=== PATIENT | male | born 1980 | race Two or more races ===

== ENCOUNTER 2024-04-15 02:24 | Emergency (ER) | payer OTHER ==
[~2024-04-15] VITALS: Ht 165.1 cm; Wt 90.9 kg
[2024-04-15 03:33] VITALS: BP 144/94; PULSE 98; RESP 19; O2SAT 94
[2024-04-15] MEDS: ACETAMINOPHEN 500 MG TAB or CAP PO ONE (03:40)
[2024-04-15] MEDS: KETOROLAC TROMETH 60MG/2ML VIAL IM ONE (03:41)
[2024-04-15] MEDS ORDERED: METH4PAK PO (03:45)
[2024-04-15] MEDS ORDERED: AUG875T PO (03:45)
--- NOTE | 2024-04-15 03:46 | ED.PDOC ---
Eye-HPI HPI Comments PT PRESENTED TO ED FOR SORE THROAT, COUGH, CONGESTION, FEVERS CHILLS X1 DAY. PT DENIED DIFFICULTY SWALLOWING. DENIES DIFFICULTY BREATHING, SHORTNESS OF BREATH, FEVERS, RECENT TRAVEL, KNOWN ILL CONTACTS. Chief Complaint: Sore Throat Time Seen by MD: 02:36 Reviewed Notes: Nurses Notes, Medications, Allergies Allergies: Coded Allergies: No Known Drug Allergy (Verified Allergy, Unknown, 04/15/24) Home Meds Active Scripts Methylprednisolone (Medrol Dosepak) 4 Mg Victorino, 4 MG PO UD for 6 Days, #21 TAB UAD Prov:EDWAR MAY [employer] 04/15/24 Amoxicillin & Pot Clavulanate (AUGMENTIN TABLET) 875 Mg Tb, 1 TAB PO BID for 7 Days, #14 TAB Prov:YADIRAEWDAR [facility] 04/15/24 Information Source: Patient Mode of Arrival: Ambulatory Past Medical History PAST MEDICAL HISTORY: Denies Surgical History: Denies all surgeries Family History Family History: Reviewed,noncontributory to illness Social History Smoker: Non-Smoker Alcohol: Denies ETOH Use Drugs: Denies Drug Use Constitutional: reports: chills, fever; denies: diaphoresis, fatigue, malaise, sweats, weakness, others EENTM: reports: nasal discharge, throat pain, throat swelling; denies: blurred vision, double vision, ear bleeding, ear discharge, ear drainage, ear pain, ear ringing, eye pain, eye redness, hearing loss, mouth pain, mouth swelling, nose bleeding, nose congestion, nose pain, photophobia, tearing, voice changes, others Respiratory: reports: cough; denies: hemoptysis, orthopnea, SOB at rest, shortness of breath, SOB with excertion, stridor, wheezing, others Cardiovascular: denies: chest pain, dizzy spells, diaphoresis, Dyspnea on exertion, edema, irregular heart beat, left arm pain, lightheadedness, palpitat ions, PND, syncope, others Gastrointestinal: denies: abdomen distended, abdominal pain, blood streaked bow els, constipated, diarrhea, dysphagia, difficulty swallowing, hematemesis, melena, nausea, poor appetite, poor fluid intake, rectal bleeding, rectal pain, vomiting, others Genitourinary: denies: burning, dysuria, flank pain, frequency, hematuria, incontinence, penile discharge, penile sore, pain, testicle pain, testicle swelling, urgency, others Neurological: denies: dizziness, fainting, headache, left sided numbness, left sided weakness, numbness, paresthesia, pre-existing deficit, right sided numbness, right sided weakness, seizure, speech problems, tingling, tremors, weakness, others Musculoskeletal: denies: back pain, gout, joint pain, joint swelling, muscle pain, muscle stiffness, neck pain, others Integumetry: denies: bruises, change in color, change in hair/nails, dryness, laceration, lesions, lumps, rash, wounds, others Allergic/Immunocompromised: denies: Difficulty Healing, Frequent Infections, Hives, Itching, others Hematologic/Lymphatic: denies: anemia, blood clots, easy bleeding, easy bruising, swollen glands, others Endocrine: denies: excessive hunger, excessive sweating, excessive thirst, excessive urination, flushing, intolerance to cold, intolerance to heat, unexplained weight gain, unexplained weight loss, others Psychiatric: denies: anxiety, bipolar disorder, depression, hopeless, panic disorder, schizophrenia, sleepless, suicidal, others Physical Exam General Appearance: No Apparent Distress, Normal HEENT: Pharyngeal Erythema, TMs Normal, Other (TONSILS GRADE 4 ERYTHEMIC WITHOUT EXUDATE NO NOTED OBVIOUS PERITONSILLAR ABSCESS) Neck: Full Range of Motion, Non-Tender Respiratory: Lungs Clear, No Respiratory Distress, Normal Breath Sounds Cardiovascular: No Edema, No JVD, No Murmur, No Gallop, Normal Peripheral Pulses, Regular Rate/Rhythm Breast Exam: Deferred Gastrointestinal: No Organomegaly, Non Tender, No Pulsatile Mass, Normal Bowel Sounds, Soft Genitalia: Deferred Pelvic: Deferred Rectal: Deferred Extremities: Normal capillary refill, Normal inspection, Normal range of motion, Non-tender, No pedal edema Musculoskeletal : Apperance: Normal Neurologic: Alert, 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 Was a procedure done?: No EENT DIFF Eye: N/A Sore Throat: Ted's Angina, Peritonsillar Abscess, Peritonsillar Cellulitis, Pharyngitis X-Ray, Labs, Meds, VS Vital Signs Date Time Temp Pulse Resp B/P (MAP) Pulse Ox O2 Delivery O2 Flow Rate FiO2 04/15/24 04:39 101.0 04/15/24 03:40 102.7 04/15/24 03:33 102.7 98 19 144/94 (111) 94 102.7 04/15/24 03:33 98 19 94 Room Air 04/15/24 02:35 99.8 105 18 146/94 (111) 94 Current Medications Medications (Trade) Dose Ordered Sig/Zaida Route Start Time Stop Time Status Last Admin Ketorolac Tromethamine (Toradol Injection) 60 mg ONCE ONCE IM 04/15/24 03:45 04/15/24 03:46 DC 04/15/24 03:41 Acetaminophen (Tylenol Tablet Or Capsule) 500 mg ONCE ONCE PO 04/15/24 03:45 04/15/24 03:46 DC 04/15/24 03:40 X-Ray, Labs, Meds, VS Comment GIVEN TORADOL 60 MG IM AND TYLENOL 1 G P.O.. LIKELY BACTERIAL START TRIAL OF AUGMENTIN AND MEDROL DOSEPAK. ADVISED TO TAKE [id number] TYLENOL AND MOTRIN NEEDED FOR PAIN OR FEVER PER LABELED DOSING INSTRUCTIONS. ADVISED TO REST INCREASE P.O. FLUIDS WITH ELECTROLYTES. ADVISED TO FOLLOW UP WITH HIS PCP WITHIN 2-3 DAYS IF NO IMPROVEMENT. ER RETURN PRECAUTIONS GIVEN PATIENT INDICATED UNDERSTANDING AGREES WITH DISCHARGE PLAN OF CARE. Time of 1ST Reevaluation: 04:43 Reevaluation 1ST: Improved Patient Education/Counseling: Diagnosis, Treatment, Prognosis, Need For Follow Up Family Education/Counseling: No Family Present Departure 1 Departure Time of Disposition: 04:43 Impression: Primary Impression: Acute tonsillitis Qualified Codes: J03.90 - Acute tonsillitis, unspecified Disposition: 01 HOME / SELF CARE / HOMELESS Condition: Stable e-Prescriptions Methylprednisolone (Medrol Dosepak) 4 Mg Victorino 4 MG PO UD for 6 Days, #21 TAB UAD Prov: EDWAR MAY 04/15/24 Amoxicillin & Pot Clavulanate (AUGMENTIN TABLET) 875 Mg Tb 1 TAB PO BID for 7 Days, #14 TAB Prov: EDWAR MAY 04/15/24 Discharged With: Self Critical Care Note Critical Care Time?: No Stability Stability form required: No EDWAR MAYP Apr 15, 2024 03:46
[2024-04-15 04:59] VITALS: TEMP 99.6
== END 2024-04-15 05:02 | disposition home or self-care (01) ==
LOC: ER 02:24
DX: J03.90 Acute tonsillitis, unspecified (principal)
CPT/HCPCS: 96372; 99283; J1885